=== PATIENT | male | born 1965 | race Hispanic/Latino ===

== ENCOUNTER 2022-05-30 01:27 | Emergency (ER) | payer MEDICAID, OTHER ==
[~2022-05-30] VITALS: Ht 167.6 cm; Wt 89.8 kg
[2022-05-30 02:19] VITALS: BP 141/75
== END 2022-05-30 03:20 | disposition home or self-care (01) ==
LOC: EDH 01:27
DX: F41.8 Other specified anxiety disorders (principal)